=== PATIENT | female | born 1980 | race Caucasian/White ===

== ENCOUNTER 2020-07-13 19:04 | Emergency (ER) | payer MEDICAID ==
[~2020-07-13] VITALS: Ht 154.9 cm; Wt 100.0 kg
[2020-07-13] MEDS ORDERED: LEVO88TA4 PO (19:29)
[2020-07-13 20:04] LABS: BASOPHILS % (AUTO) 0.9 % (0.0-2.0); EOSINOPHILS % (AUTO) 2.8 % (1.0-6.0); HEMATOCRIT 35.7 % (36-46); HEMOGLOBIN 12.3 g/dL (12.0-16.0); LYMPHOCYTES # (AUTO) 3.8 K/uL (1.0-4.8); LYMPHOCYTES % (AUTO) 43.4 % (22.0-44.0); MEAN CORPUSCULAR HEMOGLOBIN 31.1 pg (26.0-34.0); MEAN CORPUSCULAR HGB CONC 34.3 G/dL (31.0-37.0); MEAN CORPUSCULAR VOLUME 91 fL (80-100); MONOCYTES # (AUTO) 0.5 K/uL (0.1-1.0); MONOCYTES % (AUTO) 6.2 % (2.0-9.0); NEUTROPHILS # (AUTO) 4.1 K/uL (1.8-7.7); NEUTROPHILS % (AUTO) 46.7 % (40.0-70.0); PLATELET COUNT (AUTO) 270 K/uL (150-450); RED BLOOD CELL COUNT(AUTO) 3.94 MIL/uL (4.00-5.20); RED CELL DISTRIBUTION WIDTH 12.7 % (11.5-14.5)
[2020-07-13 20:13] LABS: ANION GAP 6 mmol/L (8-16); CARBON DIOXIDE 30 mmol/L (22-29); CHLORIDE 101 mmol/L (98-107); CREATININE 0.75 mg/dL (0.60-1.30); GLOMERULAR FILTR. RATE CALC > 60 mL/min (>60); GLUCOSE,RANDOM 129 mg/dL (70-110); POTASSIUM 4.1 mmol/L (3.5-5.1); SODIUM SERUM 137 mmol/L (136-145); UREA NITROGEN, BLOOD 7 mg/dL (7-18)
[2020-07-13 20:33] LABS: ALANINE AMINOTRANSFERASE 43 U/L (12-78); ALBUMIN 3.8 g/dL (3.4-5.0); ALKALINE PHOSPHATASE 58 U/L (46-116); ASPARTATE AMINOTRANSFERASE 23 U/L (15-37); BILIRUBIN,TOTAL 0.3 mg/dL (0.1-1.0); HCG,QUANTITATIVE < 1 mIU/mL (0-6); LIPASE 56 U/L (73-393); TOTAL PROTEIN, SERUM 8.3 g/dL (6.4-8.2)
[2020-07-13 20:47] LABS: APPEARANCE,URINE TURBID (CLEAR); BILIRUBIN,URINE NEGATIVE (NEGATIVE); GLUCOSE, URINE (UA) NEGATIVE (NEGATIVE); KETONES,URINE NEGATIVE (NEGATIVE); LEUKOCYTE ESTERASE ,URINE NEGATIVE (NEGATIVE); NITRATE,URINE NEGATIVE (NEGATIVE); OCCULT BLOOD,URINE MODERATE (NEGATIVE); PH,URINE 5.5 (5.0-8.0); PROTEIN,URINE NEGATIVE (NEGATIVE); UROBILINOGEN,URINE 0.2 mg/dL (<=1.0)
[2020-07-13 21:13] LABS: BACTERIA,URINE Moderate /HPF (None Seen); SQUAMOUS EPITHELIAL CELL,UR Few /LPF (None Seen)
[2020-07-13 21:13] LABS: FREE T4 (FREE THYROXINE) 0.86 ng/dL (0.76-1.46); THYROID STIMULATING HORMONE 12.63 uIU/mL (0.36-3.74)
[2020-07-13 21:54] VITALS: BP 132/60
== END 2020-07-13 22:15 | disposition home or self-care (01) ==
LOC: EMS 19:04
DX: R11.0 Nausea (principal); Z79.899 Other long term (current) drug therapy
CPT/HCPCS: 84439; 84443; 87086; 93005

== ENCOUNTER 2021-10-22 23:28 | Emergency (ER) | payer MEDICAID ==
[~2021-10-22] VITALS: Ht 154.9 cm; Wt 100.0 kg
[~2021-10-22 23:28] MED LIST: LEVO88TA4 PO
[2021-10-22 23:33] VITALS: BP 129/83
[2021-10-23] MEDS ORDERED: NAPROXEN 250 MG TABLET PO ONE (00:15)
[2021-10-23] MEDS ORDERED: TraMADol HCL 50 MG TABLET PO ONE (00:15)
[2021-10-23] MEDS ORDERED: AMOX TR/POT CLAV 875 MG/125 MG TABLET PO ONE (00:15)
== END 2021-10-23 00:39 | disposition home or self-care (01) ==
LOC: EMS 23:29
DX: S02.5XXA Fracture of tooth (traumatic), initial encounter for closed fracture (principal); E03.9 Hypothyroidism, unspecified; K04.7 Periapical abscess without sinus; X58.XXXA Exposure to other specified factors, initial encounter; Y93.89 Activity, other specified; Y92.89 Other specified places as the place of occurrence of the external cause; Y99.8 Other external cause status
CPT/HCPCS: 99284; Z7502; Z7610

== ENCOUNTER 2022-02-05 14:36 | Emergency (ER) | payer MEDICAID ==
[~2022-02-05] VITALS: Ht 154.9 cm; Wt 104.5 kg
[2022-02-05 14:40] VITALS: BP 136/86
[2022-02-05] MEDS ORDERED: LEVO150 PO (14:44)
[2022-02-05] MEDS ORDERED: DEXAMETHASONE SOD PHOS 4 MG/ML VIAL IM ONE (15:30)
[2022-02-05] MEDS ORDERED: LIDOCAINE/PF 1% 2 ML VIAL IM ONE (16:15)
[2022-02-05] MEDS ORDERED: CefTRIAXone SODIUM 1 GM/VIAL IM ONE (16:15)
[2022-02-05] MEDS ORDERED: PENI500T2 PO (16:20)
== END 2022-02-05 17:10 | disposition home or self-care (01) ==
LOC: EMS 14:36
DX: J35.1 Hypertrophy of tonsils (principal); J02.9 Acute pharyngitis, unspecified
CPT/HCPCS: 87430; 96372; 99284; J0696; J1100; J3490